=== PATIENT | female | born 1960 | race African-American/Black ===

== ENCOUNTER 2019-06-29 09:56 | Emergency (ER) | payer MEDICAID, MEDICARE, OTHER ==
[2019-06-29] MEDS ORDERED: Fluorescein Opthalmic Strip ONE (10:34)
[2019-06-29] MEDS ORDERED: Proparacaine 0.5% Opth 15 ML BOT ONE (10:36)
[2019-06-29] MEDS ORDERED: Acetaminophen 500 MG TAB ONE (10:54)
== END 2019-06-29 10:56 | disposition home or self-care (01) ==
LOC: ERS 09:56
DX: S00.451A Superficial foreign body of right ear, initial encounter (principal); I25.10 Atherosclerotic heart disease of native coronary artery without angina pectoris; G40.909 Epilepsy, unspecified, not intractable, without status epilepticus; E03.9 Hypothyroidism, unspecified; F32.9 Major depressive disorder, single episode, unspecified; M79.7 Fibromyalgia; K21.9 Gastro-esophageal reflux disease without esophagitis; W25.XXXA Contact with sharp glass, initial encounter
CPT/HCPCS: 99283

== ENCOUNTER 2020-12-31 03:39 | Emergency (ER) | payer MEDICARE, MEDICAID ==
[2020-12-31] MEDS ORDERED: Meclizine HCl 25 MG TAB ONE (04:35)
[2020-12-31 04:42] LABS: Bilirubin Negative (Negative); Blood, Urine Negative (Negative); Glucose, Urine (Dipstick) Negative (Negative); Ketone, Urine Negative (Negative); Leukocyte Negative (Negative); Nitrite Negative (Negative); Protein, Urine (Dipstick) Negative (Neg-Trace)
[2020-12-31 04:45] LABS: Clarity Clear (Clear)
[2020-12-31 04:47] LABS: Specific Gravity, Urine 1.007 (1.002-1.036)
[2020-12-31 05:01] LABS: #Basophils 0.1 thou/uL (0.0-0.2); #Eosinphils 0.1 thou/uL (0.0-0.7); #Lymphocytes 2.7 thou/uL (1.20-3.40); #Monocytes 0.4 thou/uL (0.11-0.59); #Neutrophils 3.9 thou/uL (1.40-6.50); %Basophils 0.9 % (0.0-1.0); %Eosinophils 1.1 % (0.0-10.0); %Lymphocytes 37.7 % (21.0-51.0); %Monocytes 5.5 % (0.0-10.0); %Neutrophils 54.9 % (42.0-75.0); Mean Corpuscular HGB CONC 32.4 g/dL (32.0-36.0); Mean Corpuscular Hemoglobin 31.4 pg (27.0-31.0); Mean Corpuscular Volume 96.8 fL (78.0-98.0); Mean Platelet Volume 9.6 fL (7.4-10.4); Platelet Count 288 thou/uL (130-400); RBC Distribution Width 12.2 % (11.5-14.5); Red Blood Cell (RBC) Count 4.78 mill/uL (4.20-5.40); White Blood Cell (WBC) Count 7.1 thou/uL (4.8-10.8)
[2020-12-31 05:54] LABS: Albumin 3.1 g/dL (3.4-4.8)
[2020-12-31 05:55] LABS: Chloride 111 mmol/L (98-107)
[2020-12-31 05:56] LABS: Calcium 8.5 mg/dL (7.8-10.44); Potassium 4.2 mmol/L (3.5-5.1); Sodium 136 mmol/L (136-145)
[2020-12-31 05:57] LABS: Globulin 4.8 g/dL (2.4-3.5); Glucose 108 mg/dL (80-115); Protein, Total 7.9 g/dL (5.8-8.1)
[2020-12-31 05:58] LABS: Anion Gap 13 mmol/L (10-20); Carbon Dioxide 16 mmol/L (23-31)
[2020-12-31 05:59] LABS: Bilirubin, Total 0.4 mg/dL (0.2-1.2)
[2020-12-31 06:00] LABS: Alkaline Phosphatase 108 U/L (40-110); Calc. Creatinine Clearance 0 mL/min (70-130)
[2020-12-31 06:01] LABS: BUN (Urea Nitrogen) 9 mg/dL (9.8-20.1)
[2020-12-31 06:02] LABS: AST (SGOT) 14 U/L (5-34)
[2020-12-31 06:03] LABS: ALT (SGPT) 13 U/L (8-55)
== END 2020-12-31 07:04 | disposition home or self-care (01) ==
LOC: ERS 03:39
DX: R42 Dizziness and giddiness (principal); E78.5 Hyperlipidemia, unspecified; E78.00 Pure hypercholesterolemia, unspecified; I10 Essential (primary) hypertension; J45.909 Unspecified asthma, uncomplicated; E03.9 Hypothyroidism, unspecified; I25.10 Atherosclerotic heart disease of native coronary artery without angina pectoris
CPT/HCPCS: 36415; 70450; 71045; 80053; 81003; 84484; 85025; 93005

== ENCOUNTER 2021-07-16 19:32 | Emergency (ER) | payer MEDICARE, MEDICAID ==
[2021-07-16 20:29] LABS: #Monocytes 0.7 thou/uL (0.11-0.59); #Neutrophils 6.2 thou/uL (1.40-6.50); %Basophils 0.2 % (0.0-1.0); %Eosinophils 0.6 % (0.0-10.0); %Monocytes 8.9 % (0.0-10.0); %Neutrophils 77.4 % (42.0-75.0); Hemoglobin 14.4 g/dL (12.0-16.0); Mean Corpuscular HGB CONC 33.5 g/dL (32.0-36.0); Mean Corpuscular Hemoglobin 31.8 pg (27.0-31.0); Mean Corpuscular Volume 95.1 fL (78.0-98.0); Mean Platelet Volume 8.6 fL (7.4-10.4); Platelet Count 298 thou/uL (130-400); RBC Distribution Width 11.8 % (11.5-14.5); Red Blood Cell (RBC) Count 4.52 mill/uL (4.20-5.40)
[2021-07-16] MEDS ORDERED: Metoclopramide HCl 10 MG/2 ML VIAL ONE (20:51)
[2021-07-16] MEDS ORDERED: diphenhydrAMINE 50 MG/ML VIAL ONE (20:52)
[2021-07-16] MEDS ORDERED: Acetaminophen 500 MG TAB ONE (20:52)
[2021-07-16] MEDS ORDERED: Ketorolac Tromethamine 30 MG/ML VIAL ONE (20:52)
[2021-07-16 20:58] LABS: Albumin 3.6 g/dL (3.4-4.8); Anion Gap 13 mmol/L (10-20); BUN (Urea Nitrogen) 10 mg/dL (9.8-20.1); Bilirubin, Total 0.7 mg/dL (0.2-1.2); Calc. Creatinine Clearance 0 mL/min (70-130); Calcium 9.1 mg/dL (7.8-10.44); Carbon Dioxide 20 mmol/L (23-31); Chloride 107 mmol/L (98-107); Glucose 110 mg/dL (80-115); Potassium 3.9 mmol/L (3.5-5.1); Sodium 136 mmol/L (136-145)
[2021-07-16 20:59] LABS: ALT (SGPT) 16 U/L (8-55); AST (SGOT) 18 U/L (5-34); Alkaline Phosphatase 120 U/L (40-110); Globulin 5.4 g/dL (2.4-3.5); Magnesium 1.9 mg/dL (1.6-2.6)
[2021-07-17 11:16] LABS: SARS-CoV-2 PCR by NAA DETECTED (NotDetected)
== END 2021-07-16 23:16 | disposition home or self-care (01) ==
LOC: ERS 19:32
DX: U07.1 COVID-19 (principal); E78.5 Hyperlipidemia, unspecified; E78.00 Pure hypercholesterolemia, unspecified; I10 Essential (primary) hypertension; J45.909 Unspecified asthma, uncomplicated; K21.9 Gastro-esophageal reflux disease without esophagitis; I25.10 Atherosclerotic heart disease of native coronary artery without angina pectoris; E03.9 Hypothyroidism, unspecified; Z79.899 Other long term (current) drug therapy
CPT/HCPCS: 71045; 80053; 83735; 84484; 85025; 87804 ×2; 93005; U0003; U0005; 96374; 96375; J1200; J1885; J2765